=== PATIENT | male | born 1960 | race Caucasian/White ===

== ENCOUNTER 2019-12-02 07:55 | Day surgery (SDC) | payer OTHER ==
[~2019-12-02 07:55] MED LIST: CONRAY-60 60% 50ML VIAL (Q9961) ONE; cefTRIAXone SOD 1GM VIAL (J0696 PER 250MG) ONE
[2019-12-02] MEDS ORDERED: fentaNYL 250 MCG/5 ML INJECTION (J3010) As Ordered ONE (08:33)
[2019-12-02] MEDS ORDERED: propofoL 200 MG/20 ML VIAL As Ordered ONE (08:33)
[2019-12-02] MEDS ORDERED: PHENYLephrine HCL 500 MCG/5 ML (100MCG/ML) SYRINGE (J2370) As Ordered ONE ×2 (08:33→09:00)
[2019-12-02] MEDS ORDERED: LIDOCAINE 2% 100MG/5ML SDV (FOR ANES.) As Ordered ONE (08:33)
[2019-12-02] MEDS ORDERED: MIDAZOLAM INJ 2MG/2ML VIAL (J2250 PER 1MG) As Ordered ONE (08:33)
[2019-12-02] MEDS ORDERED: ONDANSETRON 4MG/2ML VIAL As Ordered ONE (08:33)
[2019-12-02] MEDS ORDERED: dexameTHASONE 4 MG/ML 1ML VIAL (J1100 PER 1MG) As Ordered ONE (08:33)
[2020-01-08 13:08] LABS: CA Oxalate Dihy 20 % (.); Ca Ox Monohydrate 80 % (.); Size 2x2 mm (.)
--- NOTE | 2020-01-24 11:27 | RO ---
DATE OF OPERATION: 12/02/2019 PREOPERATIVE DIAGNOSIS: Right renal calculus. POSTOPERATIVE DIAGNOSIS: Right ureteral calculus. PROCEDURE: Cystoscopy with right retrograde pyelogram, ureteroscopic laser lithotripsy and stent insertion and x-ray interpretation. SURGEON: Napoleon Deal MD ANESTHESIA: General. INDICATION FOR OPERATION: This is a 59-year-old white male who originally presented with sepsis and found to have to have an obstructing right ureteral calculus. He was therefore brought to the operating room today for treatment of the stone. DESCRIPTION OF OPERATION: The patient was anesthetized with general anesthesia, placed in lithotomy position, prepped with Betadine paint and draped in an aseptic manner. A timeout was then performed. A 22 Persian cystoscope was then inserted into the meatus and advanced under direct vision of a 30 degree lens to the bladder. The end of the stent was grasped in forceps and brought out through the urethral meatus and a wire was then passed through this lumen but could not pass entirely through it because of obstruction. The stent was therefore removed, cystoscope was reinserted and two wires were then passed through the ureteral orifice up to the renal pelvis. The cystoscope was then removed. A tunnel dilator was then passed over the working wire and this was followed by a flexible ureteroscope. A stone was encountered in the proximal ureter. Because of the size, it could not be retracted and was not attempted. A laser lithotriptor was then used to break the stone into small fragments. The larger fragments were removed and the smaller fragments that could not be trapped in the basket were left to be passed spontaneously. The scope was then advanced up to the renal pelvis and no further stones were identified. The calices were then examined and no further stones were seen. The ureteroscope and tunnel were then removed under direct vision. The cystoscope was then backloaded over the safety wire and a double-J stent was then passed over this wire and curled well in the renal pelvis and in the bladder and the wire was removed. X-ray fluoroscopy was used throughout the case to pass the instruments and properly position the ureteral stent. Interpretation was performed during these procedures. The ureteral stent will be left in place for 1-2 weeks before removal in the office. [facility]ITAL[facility]rosl[facility]
== END 2019-12-02 13:55 | disposition home or self-care (01) ==
LOC: M SDC 07:55
PROVIDERS: ATTEND Urology
DX: N20.1 Calculus of ureter (principal); I48.0 Paroxysmal atrial fibrillation; G47.33 Obstructive sleep apnea (adult) (pediatric); I10 Essential (primary) hypertension; E78.2 Mixed hyperlipidemia; Z79.899 Other long term (current) drug therapy; Z95.2 Presence of prosthetic heart valve
CPT/HCPCS: 52356; 74420; 82365; 88300; C1769; C1894; C2617; J0696; J1100; J1642; J2250; J2370; J2405; J3010; Q9961; U0002

== ENCOUNTER → 2021-01-13 | Outpatient (CLI) | payer OTHER ==
--- NOTE | 2021-01-13 09:37 | REP ---
INDICATION: CALCULUS OF KIDNEY COMPARISON: None. TECHNIQUE: Supine views of the abdomen and pelvis. FINDINGS: Evaluation of the urinary tract is significantly limited due to overlying bowel gas and intraluminal fecal material. No evidence for bowel obstruction. Small intrarenal calculi cannot be excluded. No obvious foreign body. Skeletal structures are essentially age-appropriate. IMPRESSION: Nondiagnostic for urinary tract calcifications. <Electronically signed by Stan Santo > 01/13/21 0926
== END ==
LOC: M PLALAB 09:03
PROVIDERS: ATTEND Urology
DX: N20.0 Calculus of kidney (principal)
CPT/HCPCS: 36415; 74018; G0103

== ENCOUNTER → 2023-02-23 | Outpatient (REF) | payer OTHER ==
[2023-02-23 18:48] LABS: APPEARANCE, URINE CLOUDY (CLEAR); BACTERIA, URINE AUTO NEGATIVE (NEGATIVE); BILIRUBIN, URINE AUTO NEGATIVE (NEGATIVE); BLOOD, URINE BLOOD 3+ (NEGATIVE); COLOR, URINE YELLOW (YELLOW); GLUCOSE, URINE (UA) AUTO NEGATIVE (NEGATIVE); KETONE, URINE AUTO NEGATIVE (NEGATIVE); LEUKOCYTE ESTERASE, URINE AUTO 2+ (NEGATIVE); MUCUS, URINE SMALL (NEGATIVE); NITRITE, URINE AUTO NEGATIVE (NEGATIVE); PROTEIN, URINE AUTO 1+ mg/dL (NEGATIVE); RBC, URINE AUTO TNTC /HPF (0-3); SQUAMOUS EPITHELIAL CELL UR AU 2 /HPF (0-6); UROBILINOGEN, URINE AUTO 0.2 mg/dL (0.0-2.0); WBC, URINE AUTO 56 /HPF (0-3)
== END ==
LOC: M LAB REF 17:06
PROVIDERS: ATTEND Physician Assistant
DX: Z87.898 Personal history of other specified conditions (principal)

== ENCOUNTER → 2023-05-25 | Day surgery (SDC) | payer OTHER ==
[~2023-05-25] VITALS: Ht 175.3 cm; Wt 121.7 kg
[~2023-05-25] MED LIST changes: +ACETAMINOPHEN 1000MG 100ML IV BAG As Ordered ONE; +ASPI81TA26 PO; +ATOR40TA75 PO; -CONRAY-60 60% 50ML VIAL (Q9961) ONE; +EQL50TAB2 PO; +FLOM0.4C39 PO; +FURO40TA2 PO; +LIDOCAINE 2% 100MG/5ML SDV (FOR ANES.) As Ordered ONE; +LISI2.5T9 PO; +METF500T13 PO; +METO50TA7 PO; +MIDAZOLAM INJ 2MG/2ML VIAL As Ordered ONE; +ONDANSETRON 4MG 2ML VIAL As Ordered ONE; +PROBCAP14 PO; +SEMA1PEN2 SQ; +SPIR-10 PO; +THERTAB52 PO; +VITA100093 PO; +XARE10TA PO; -cefTRIAXone SOD 1GM VIAL (J0696 PER 250MG) ONE; +dexmedeTOMIDine (4MCG/ML)200MCG/50ML BTL (PRECEDEX) As Ordered ONE; +fentaNYL 100 MCG/2 ML INJECTION As Ordered ONE; +propofoL 200 MG/20 ML VIAL As Ordered ONE
[2023-05-25] MEDS: ceFAZolin SOD 2 GM in IV 1 EA IV ONE (08:30)
[2023-05-25] MEDS: ceFAZolin SOD 1 GM in D5W MINI-BAG PLUS 50 ML IV ONE (08:30)
[2023-05-25 09:32] VITALS: BP 108/69; TEMP 97.8; O2SAT 99
== END | disposition home or self-care (01) ==
LOC: M SDC 06:43
PROVIDERS: ATTEND Urology
DX: N20.0 Calculus of kidney (principal); I48.91 Unspecified atrial fibrillation; I10 Essential (primary) hypertension; E11.9 Type 2 diabetes mellitus without complications; E78.00 Pure hypercholesterolemia, unspecified; G47.30 Sleep apnea, unspecified; Z79.82 Long term (current) use of aspirin; Z79.84 Long term (current) use of oral hypoglycemic drugs; Z79.899 Other long term (current) drug therapy; Z79.01 Long term (current) use of anticoagulants; Z95.2 Presence of prosthetic heart valve
CPT/HCPCS: 50590; 74018; J0131; J0690; J2250; J2405; J3010

== ENCOUNTER 2024-07-15 10:08 | Day surgery (SDC) | payer OTHER ==
[~2024-07-15] VITALS: Ht 175.3 cm; Wt 121.6 kg
[~2024-07-15 10:08] MED LIST changes: -ACETAMINOPHEN 1000MG 100ML IV BAG As Ordered ONE; +IRON65TA2 PO; -LIDOCAINE 2% 100MG/5ML SDV (FOR ANES.) As Ordered ONE; -MIDAZOLAM INJ 2MG/2ML VIAL As Ordered ONE; -ONDANSETRON 4MG 2ML VIAL As Ordered ONE; +POTA-226 PO; +XARE20TA PO; +ceFAZolin SOD 2 GM IV ONCE IV ONE; -dexmedeTOMIDine (4MCG/ML)200MCG/50ML BTL (PRECEDEX) As Ordered ONE; -fentaNYL 100 MCG/2 ML INJECTION As Ordered ONE; -propofoL 200 MG/20 ML VIAL As Ordered ONE
[2024-07-15] MEDS ORDERED: LR 1,000 ML IV SCH ×2 (10:45→11:40)
[2024-07-15] MEDS ORDERED: fentaNYL 100 MCG/2 ML INJECTION As Ordered ONE (10:46)
[2024-07-15] MEDS ORDERED: LIDOCAINE 2% 100MG/5ML SDV (FOR ANES.) As Ordered ONE (10:46)
[2024-07-15] MEDS ORDERED: propofoL 200 MG/20 ML VIAL As Ordered ONE (10:46)
[2024-07-15] MEDS: ceFAZolin SOD 3 GM in DEXTROSE 5% (D5W) MINI-BAG PLU 1... IV ONE (10:50)
[2024-07-15] MEDS: ISOVUE-300 61% 100ML VIAL As Ordered ONE (11:03)
[2024-07-15] MEDS ORDERED: PHENYLephrine 500MCG 5ML (100MCG/ML) SYRINGE As Ordered ONE (11:03)
[2024-07-15] MEDS ORDERED: ONDANSETRON 4MG 2ML VIAL As Ordered ONE (11:03)
[2024-07-15] MEDS ORDERED: KETOROLAC 30 MG/ML 1ML VIAL As Ordered ONE (11:03)
[2024-07-15] MEDS ORDERED: oxyCODONE 5MG TAB PO PRN (11:40)
[2024-07-15] MEDS ORDERED: fentaNYL 100 MCG/2 ML INJECTION IV PRN (11:40)
[2024-07-15] MEDS ORDERED: ONDANSETRON 4MG 2ML VIAL IV PRN (11:40)
[2024-07-15] MEDS ORDERED: HYDROMORPHONE HCL 0.5 MG/ 0.5 ML SYRINGE IV PRN (11:40)
[2024-07-15] MEDS ORDERED: OXYB5TAB14 PO (11:40)
[2024-07-15] MEDS ORDERED: MACR100C43 PO (11:40)
[2024-07-15] MEDS ORDERED: PYRI1TAB5 PO (11:40)
[2024-07-15] MEDS: ESMOLOL INJ 100MG/10ML VIAL IV ONE (12:31)
[2024-07-15] MEDS: METOPROLOL 5 MG/5 ML VIAL IV PRN (12:53)
[2024-07-15 13:17] VITALS: BP 107/58
[2024-07-15 13:47] VITALS: BP 114/69
[2024-07-15 14:05] VITALS: TEMP 97.4; O2SAT 97
== END 2024-07-15 14:19 | disposition home or self-care (01) ==
LOC: M SDC 10:08
PROVIDERS: ATTEND Urology
DX: N20.0 Calculus of kidney (principal); I35.9 Nonrheumatic aortic valve disorder, unspecified; I48.91 Unspecified atrial fibrillation; I25.10 Atherosclerotic heart disease of native coronary artery without angina pectoris; I10 Essential (primary) hypertension; E11.9 Type 2 diabetes mellitus without complications; G47.30 Sleep apnea, unspecified; Z99.89 Dependence on other enabling machines and devices; Z79.899 Other long term (current) drug therapy
CPT/HCPCS: 52356; 76000; 82365; C1769; C1894; C2617; J0690; J1100; J1805; J1885; J2371; J2405; J3010; Q9967

== ENCOUNTER → 2024-11-12 | Outpatient (REF) | payer OTHER ==
[~2024-11-12] MED LIST changes: -EQL50TAB2 PO; -FLOM0.4C39 PO; +MACR100C43 PO; +OXYB5TAB14 PO; +PYRI1TAB5 PO; +TAMS-18 PO; +VITA1TAB82 PO; -ceFAZolin SOD 2 GM IV ONCE IV ONE
[2024-11-12 18:08] LABS: APPEARANCE, URINE MANUAL TURBID (CLEAR); COLOR, URINE MANUAL RED (YELLOW)
[2024-11-12 18:09] LABS: PH,URINE MAN 6.0 UNITS (5.0 - 7.0)
[2024-11-12 18:10] LABS: BILIRUBIN, URINE MANUAL OBSCURED (NEGATIVE); BLOOD URINE MANUAL POSITIVE (NEGATIVE); GLUCOSE, URINE (UA) MANUAL NEGATIVE (NEGATIVE); KETONE, URINE MANUAL OBSCURED mg/dL (NEGATIVE); LEUKOCYTE ESTERASE, URINE MAN POSITIVE (NEGATIVE); NITRITE, URINE MANUAL OBSCURED (NEGATIVE); PROTEIN, URINE MANUAL 3+ mg/dL (NEGATIVE); SPECIFIC GRAVITY,URINE MANUAL 1.020 (1.002-1.035); UROBILINOGEN, URINE MANUAL OBSCURED mg/dl (NORMAL)
[2024-11-12 18:31] LABS: RBC, URINE TNTC /hpf (0-3)
[2024-11-12 18:33] LABS: BACTERIA, URINE NONE SEEN; HYALINE CAST, URINE NONE SEEN /lpf (0-1); SQUAMOUS EPITHELIAL CELL URINE SMALL AMOUNT /hpf (SMALL AMT)
== END ==
LOC: M SMT 16:48
PROVIDERS: ATTEND Urology
DX: R30.0 Dysuria (principal)